=== PATIENT | male | born 1995 | race Caucasian/White ===

== ENCOUNTER 2020-10-25 13:13 | Emergency (ER) | payer OTHER ==
[2020-10-25] MEDS ORDERED: NORCO 5-325 TA1 EACH PO (15:25)
[2020-10-25] MEDS ORDERED: AUGMENTIN 875-1 EACH PO (15:25)
== END 2020-10-25 16:04 | disposition home or self-care (01) ==
LOC: FER 13:13
DX: S51.812A Laceration without foreign body of left forearm, initial encounter (principal); Z23 Encounter for immunization; F17.210 Nicotine dependence, cigarettes, uncomplicated; W54.0XXA Bitten by dog, initial encounter; Y92.009 Unspecified place in unspecified non-institutional (private) residence as the place of occurrence of the external cause
CPT/HCPCS: 90471; 90715

== ENCOUNTER 2022-02-05 08:32 | Emergency (ER) | payer OTHER ==
[~2022-02-05 08:32] MED LIST: AUGMENTIN 875-1 EACH PO; NORCO 5-325 TA1 EACH PO
== END 2022-02-05 09:48 | disposition home or self-care (01) ==
LOC: FER 08:32
DX: S06.0X0A Concussion without loss of consciousness, initial encounter (principal); S00.81XA Abrasion of other part of head, initial encounter; Z23 Encounter for immunization; V47.5XXA Car driver injured in collision with fixed or stationary object in traffic accident, initial encounter; Z28.311 Partially vaccinated for COVID-19
CPT/HCPCS: 90471; 90715; 99283